=== PATIENT | female | born 1945 | race Two or more races ===

== ENCOUNTER → 2019-03-29 | Outpatient (CLI) | payer BC, MEDICARE ==
--- NOTE | 2019-03-31 09:44 | RADONC ---
RADIATION ONCOLOGY CONSULTATION NOTE DATE: 03/29/2019 CHART NUMBER: [id number] DIAGNOSIS: Endometrial carcinoma. STAGE: II, T2N0M0. ECOG PERFORMANCE STATUS: 0 CONSULTATION NOTE: Ms. 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 HISTORY OF PRESENT ILLNESS: The patient was in her usual state of health and had been followed by her DENTAL ASSOCIATE physician Dr. Zelda Julio. Apparently, she had some postmenopausal bleeding and was found to have adenocarcinoma of the endometrium. On 03/12/2019, the patient underwent a total laparoscopic hysterectomy, lymphadenectomy and cystoscopy. Pathology revealed a moderately differentiated FIGO grade 2 adenocarcinoma of the endometrium with squamous differentiation. The tumor invaded 1.2 cm into the 1.5 cm thick myometrium both anteriorly and posteriorly. There was extensive myometrial invasion throughout. No angiolymphatic invasion was seen and there was no extrauterine extension present. 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 There was noted to be stromal invasion by the endometrial adenocarcinoma posteriorly. Once again the myometrium had extensive invasion throughout. A total of six pelvic lymph nodes were sampled and all were negative for malignancy. Three of the lymph nodes were left-sided and three from the right side. There was no parametrial or vaginal involvement present. The tumor was, therefore, staged as a stage II, T2N0M0, FIGO grade 2 malignancy. The patient is being scheduled for a PET CT scan by Dr. Ye and they are in the process of obtaining insurance authorization for that scan. She is now presenting to me for discussion of definitive external beam radiation therapy. PAST MEDICAL HISTORY: The patient's past medical history is noncontributory other than for some arthritis and motion sickness. She reports having had a benign liver cyst. ALLERGIES: The patient has NO KNOWN DRUG ALLERGIES. SOCIAL HISTORY: The patient does not smoke cigarettes. She drinks alcohol socially. FAMILY HISTORY: The patient's family history is negative for DENTAL ASSOCIATE malignancies or other cancers. REVIEW OF SYSTEMS: The patient's review of systems is noncontributory. Denies nausea, vomiting, fevers, chills, night sweats, diplopia, headaches, anxiety or depression, anorexia, weight loss, visual disturbances, chest pain, urinary or bowel difficulties, bone pain, or neurological problems. PHYSICAL EXAMINATION: The patient is a well-developed, well-nourished, 73-year-old white female in no acute distress. HEENT exam is normocephalic, atraumatic. Extraocular movements are intact. There is no palpable cervical, supraclavicular, infraclavicular, axillary, or inguinal lymphadenopathy present. Lungs are clear to auscultation and percussion. Heart has a regular rate and rhythm. Abdomen is benign with no hepatosplenomegaly, masses, or tenderness. Skeletal examination reveals no tenderness to pressure or percussion of the bony skeleton. Extremities reveal no clubbing, cyanosis, or edema. Neurologic exam is grossly intact, as is the remainder of the physical examination. DENTAL ASSOCIATE examination was deferred at this time. ASSESSMENT: I had a very lengthy discussion with this patient and her . 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 I believe the patient is a candidate for postoperative radiation therapy and I have so informed her. I have discussed with the patient in detail the potential benefits as well as possible acute and chronic sequelae of external beam radiation therapy. We have discussed logistics of treatment planning, simulation subsequent fractionated daily radiation treatments. In addition, I have printed out copies of the NCCN guidelines for endometrial adenocarcinoma. Basically this is a stage II lesion with some concerning risk factors including extensive myometrial invasion. Dr. Fernández, the patient's has reviewed the pathology and there are some areas of poorly differentiated malignancy within the lesion. In addition, the patient is over 72 years of age. In light of this, I think she would benefit from pelvic radiation. In addition, considering the cervical stroma invasion, she may benefit from vaginal vault radiation in addition following this treatment. The patient and her have obtained a second opinion already at an outside center, which is in agreement with these recommendations. Therefore, I am scheduling her for initiation of treatment planning. At this time, we are awaiting the results of a PET scan if it can be obtained. Dr. Ye's office has been working on this and we will not interfere with that process. Just in case it is not approved however, I have also ordered CT scans of the chest, abdomen and pelvis to be undertaken. The patient reports she would not be able to swallow the dye material and could not do CT scans. She therefore wishes to await the results of the PET scan if it can be obtained. In light of this, I am scheduling her first treatment planning on April 11, to allow for further healing and obtaining the PET scan next week. Thank you for allowing us to participate in the care of this truly delightful and long-term friend. If I could be of any assistance or provide you with any information, please free to contact me anytime. As always, warm regards. cc: MD Zelda Jules MD MTDD
== END ==
LOC: M ONCR 13:48
PROVIDERS: ATTEND Radiology Radiation Oncology
DX: C54.1 Malignant neoplasm of endometrium (principal)

== ENCOUNTER 2019-04-27 13:52 | Outpatient (RCR) | payer MEDICARE ==
--- NOTE | 2019-04-11 15:59 | RADONC ---
RADIATION ONCOLOGY SIMULATION NOTE DATE: 04/11/2019 CHART NUMBER: [id number] SIMULATION NOTE: Ms. Fernández was taken to the simulator today for simulation of her pelvic field. Simulation was accomplished without difficulty or discomfort. Radiation treatment planning is underway and radiation treatments will begin subsequently. An immobilization device was created, which will be used throughout the course of treatment. It was created without difficulty or discomfort. I was physically present throughout the course of CT simulation.
--- NOTE | 2019-04-19 11:21 | RADONC ---
RADIATION ONCOLOGY PROGRESS NOTE DATE OF SERVICE: 04/18/2019 CHART NUMBER: [id number] Ms. Fernández was taken to the linear accelerator today and underwent her first fraction of radiation to her pelvis. It was tolerated without difficulty or discomfort. The patient's review of systems is noncontributory. Denies nausea, vomiting, fevers, chills, night sweats, diplopia, headaches, anxiety or depression, anorexia, weight loss, visual disturbances, chest pain, urinary or bowel difficulties, bone pain, or neurological problems. PHYSICAL EXAMINATION Clearly, the patient's skin is unchanged as this was her first fraction of radiation today. The remainder of her physical exam remains unchanged as well. Nilsa tolerated her treatments without difficulty, and radiation will continue as scheduled.
--- NOTE | 2019-04-27 08:52 | RADONC ---
RADIATION ONCOLOGY PROGRESS NOTE DATE OF SERVICE: 04/26/2019 CHART NUMBER: [id number] Nilsa is presently at a dose of 1080 cGy to her pelvis and is tolerating treatments quite well at this point with no complaints related to her radiation therapy. She is having no significant bowel or urinary problems. The patient's review of systems is noncontributory. Denies nausea, vomiting, fevers, chills, night sweats, diplopia, headaches, anxiety or depression, anorexia, weight loss, visual disturbances, chest pain, urinary or bowel difficulties, bone pain, or neurological problems. PHYSICAL EXAMINATION The patient's skin is in good condition with no evidence of radiation change present. There is no moist or dry desquamation. The remainder of her physical exam remains unchanged. Nilsa is doing quite well with radiation treatments and radiation will continue as scheduled.
== END 2019-04-30 ==
LOC: M ONCR 13:52
PROVIDERS: ATTEND Radiology Radiation Oncology
DX: C54.1 Malignant neoplasm of endometrium (principal)

== ENCOUNTER 2019-05-26 14:15 | Outpatient (RCR) | payer MEDICARE ==
--- NOTE | 2019-05-03 15:45 | RADONC ---
RADIATION ONCOLOGY TREATMENT NOTE: DATE OF SERVICE: 05/03/2019 CHART NUMBER: [id number] Ms. Fernández is a 73-year-old woman who carries the diagnosis of endometrial cancer stage II, grade 2. So far she has received ten treatment doses of 1800 cGy to the pelvis. She is having some loose bowel problems which I discussed with a diet. She does not have any urinary symptoms. She denies any cramps or nausea or vomiting. She said that she is scheduled for HDR brachytherapy to the vagina. We discussed briefly about HDR. Treatment will continue as planned. MTDD
--- NOTE | 2019-05-09 14:25 | RADONC ---
RADIATION ONCOLOGY PROGRESS NOTE DATE: 05/09/2019 CHART: [id number] Ms. Fernández is a presently at a dose of 2520 cGy to her pelvis and is tolerating treatments quite well at this point with no complaints related to her radiation therapy. She is having no urinary or bowel difficulties and no bone pain. REVIEW OF SYSTEMS: The patient's review of systems is noncontributory. Denies nausea, vomiting, fevers, chills, night sweats, diplopia, headaches, anxiety or depression, anorexia, weight loss, visual disturbances, chest pain, urinary or bowel difficulties, bone pain, or neurological problems. PHYSICAL EXAMINATION: The patient's skin is in good condition with no evidence of radiation change present. There is no moist or dry desquamation. The remainder of her physical exam remains unchanged. Ms. Fernández is tolerating treatments quite well and radiation will continue as scheduled.
--- NOTE | 2019-05-18 07:56 | RADONC ---
RADIATION ONCOLOGY PROGRESS NOTE DATE: 05/16/2019 CHART NUMBER: [id number] Nilsa is presently at a dose of 3420 cGy to her pelvis and is tolerating treatments quite well at this point with no complaints related to her radiation therapy other than some loose bowel movements. REVIEW OF SYSTEMS: The patient's review of systems is positive for some GI changes, but is otherwise noncontributory. She denies nausea, vomiting, fevers, chills, night sweats, diplopia, headaches, anxiety or depression, anorexia, weight loss, visual disturbances, chest pain, urinary or bowel difficulties, bone pain, or neurological problems. PHYSICAL EXAMINATION: The patient's skin is in good condition with no evidence of moist or dry desquamation. The remainder of her physical exam remains unchanged. Ms. Fernández is tolerating treatments quite well and radiation will continue as scheduled.
--- NOTE | 2019-05-30 09:48 | RADONC ---
RADIATION ONCOLOGY END OF TREATMENT SUMMARY DATE OF SERVICE: 05/27/2019 CHART NUMBER: [id number] DIAGNOSIS: Endometrial adenocarcinoma, grade 2 (with a focus of grade 3), status post CHELITA-BSO with some cervical stromal invasion and 0/6 lymph nodes. PLAN OF RADIOTHERAPY: Local regional radiotherapy to the pelvis to control potentially microscopic disease. DATE RADIOTHERAPY STARTED: April 18. DATE RADIOTHERAPY CONCLUDED: May 26. DOSE: The patient received a total of 4500 cGy administered in 25 fractions over 39 elapsed days. She was treated exclusively with a 15 MV photon beam 100 cm SAD isocenter technique via a 3-D conformal radiotherapy technique. The 100 isodose line was chosen for dose calculation purposes. Prior to treatment delivery, localization was accomplished upon our CT simulator and treatment portals defined by the use of multiple leaf collimators. STATUS OF TUMOR: The patient had neither evidence of local regional recurrence or clinical evidence of distant metastatic spread during her course of radiotherapy. TOLERANCE: In general, treatments were well tolerated with no significant untoward side effects. Thank you for referring this very jose lady to us and allowing us the opportunity of participation in her overall management.
== END 2019-05-31 ==
LOC: M ONCR 14:15
PROVIDERS: ATTEND Radiology Radiation Oncology
DX: C54.1 Malignant neoplasm of endometrium (principal)

== ENCOUNTER → 2019-06-22 | Outpatient (CLI) | payer MEDICARE ==
--- NOTE | 2019-06-23 08:13 | RADONC ---
RADIATION ONCOLOGY FOLLOWUP NOTE DATE: 06/22/2019 CHART NUMBER: [id number] DIAGNOSIS: Endometrial carcinoma. STAGE: II, T2N0M0. ECOG PERFORMANCE STATUS: 0 FOLLOW-UP NOTE: Nilsa is a truly delightful 73-year-old white female with the diagnosis of what appears to be a stage II, T2N0M0, moderately differentiated FIGO grade 2 adenocarcinoma of the endometrium with cervical stroma invasion who is presenting to us today for routine followup visit 1 month post completion of external beam radiation therapy. The patient presents today reporting that she is doing quite well with no complaints at this time related to her radiation therapy or disease. She has no urinary or bowel difficulties, and no bone pain. REVIEW OF SYSTEMS: The patient's review of systems is noncontributory. She denies nausea, vomiting, fevers, chills, night sweats, diplopia, headaches, anxiety or depression, anorexia, weight loss, visual disturbances, chest pain, urinary or bowel difficulties, bone pain, or neurological problems. PHYSICAL EXAMINATION: The patient is a well-developed, well-nourished female in no acute distress. HEENT exam is normocephalic, atraumatic. Extraocular movements are intact. There is no palpable cervical, supraclavicular, infraclavicular, axillary, or inguinal lymphadenopathy present. Lungs are clear to auscultation and percussion. Heart has a regular rate and rhythm. Abdomen is benign with no hepatosplenomegaly, masses, or tenderness. TRANSPORTATION ASSOCIATE exam was deferred. Skeletal examination reveals no tenderness to pressure or percussion of the bony skeleton. Extremities reveal no clubbing, cyanosis, or edema. Neurologic exam is grossly intact, as is the remainder of the physical examination. ASSESSMENT The patient is clinically doing quite well at this point. She is being followed and managed closely by her physicians in [place] who have undertaken her high dose brachytherapy. They are doing routine TRANSPORTATION ASSOCIATE examinations and followup there. In light of this I am discharging her from my followup except on a p.r.n. basis. cc: MD Zelda Jules MD MTDD
== END ==
LOC: M ONCR 12:56
PROVIDERS: ATTEND Radiology Radiation Oncology
DX: C54.1 Malignant neoplasm of endometrium (principal)

== ENCOUNTER → 2021-07-02 | Outpatient (CLI) | payer MEDICARE | LOC: M WHC 11:09 | PROVIDERS: ATTEND Family Medicine | DX: Z12.31 Encounter for screening mammogram for malignant neoplasm of breast (principal); Z80.42 Family history of malignant neoplasm of prostate ==

== ENCOUNTER → 2022-07-07 | Outpatient (CLI) | payer MEDICARE | LOC: M WHC 07:52 | PROVIDERS: ATTEND Family Medicine | DX: Z12.31 Encounter for screening mammogram for malignant neoplasm of breast (principal) ==

== ENCOUNTER 2023-08-12 05:26 | Emergency (ER) | payer MEDICARE ==
[~2023-08-12] VITALS: Ht 157.5 cm; Wt 72.0 kg
[2023-08-12] MEDS ORDERED: ROLLMIS8 XX (07:56)
[2023-08-12 08:03] VITALS: BP 135/64; TEMP 96.8; O2SAT 94
== END 2023-08-12 08:04 | disposition home or self-care (01) ==
LOC: M ED 05:26
DX: M65.271 Calcific tendinitis, right ankle and foot (principal); M25.571 Pain in right ankle and joints of right foot; Z88.0 Allergy status to penicillin; Z91.030 Bee allergy status; Z99.89 Dependence on other enabling machines and devices